=== PATIENT | female | born 1965 | race Caucasian/White ===

== ENCOUNTER 2021-09-14 15:31 | Emergency (ER) | payer OTHER, SELFPAY ==
[2021-09-14] VITALS (8 sets, daily range): BP systolic 102–122; BP diastolic 63–74; PULSE 75–88; RESP 16–26; TEMP 36.1; O2SAT 96–98
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
[2021-09-14 16:00] LABS: Add Manual Diff / Slide Review NO; Basophils Absolute Auto 0 /uL (0-100); Basophils Percent Auto 0.3 % (0-2); Eosinophils Absolute Auto 100 /uL (0-450); Eosinophils Percent Auto 0.8 % (2-4); Hematocrit 35.1 % (36-46); Hemoglobin 11.6 g/dL (12.0-16.0); Lymphocytes Absolute Auto 3700 /uL (1100-4500); Lymphocytes Percent Auto 26.9 % (25-40); Mean Corpuscular HGB Conc 33.1 % (30-36); Mean Corpuscular Hemoglobin 29.1 PG (26-34); Mean Corpuscular Volume 87.9 fL (80-100); Monocytes Absolute Auto 600 /uL (0-900); Monocytes Percent Auto 4.6 % (3-14); Neutrophils Absolute Auto 9200 /uL (1500-7000); Neutrophils Percent Auto 67.4 % (50-75); Platelet Count 329 X10^3/uL (150-400); Red Blood Cell Count 3.99 X10^6/uL (4.0-5.2); Red Cell Distribution Width 13.3 % (11.6-14.8); White Blood Cell Count 13.7 X10^3/uL (4.5-11.0)
[2021-09-14 16:14] LABS: INR 1.1 (0.9-1.3); Prothrombin Time 12.3 SECONDS (10.1-12.7)
[2021-09-14 16:16] LABS: PTT Partial Thromboplastin Tim 27 SECONDS (26.4-36.2)
[2021-09-14 16:18] LABS: Pregnancy Test Serum,Qual Negative (Negative)
[2021-09-14 16:19] LABS: Alanine Aminotransferase 45 IU/L (<35); Albumin 4.2 g/dL (3.5-5.0); Albumin Globulin Ratio 1.6 (1.0-2.8); Alkaline Phosphatase 81 U/L (38-126); Aspartate Aminotransferase 85 IU/L (14-36); BUN Creatinine Ratio 19.6 (6-22); Bilirubin Total 0.4 mg/dL (0.2-1.3); Blood Urea Nitrogen 19 mg/dL (7-17); Calcium 9.2 mg/dL (8.4-10.2); Carbon Dioxide 25 mmol/L (22-32); Chloride 105 mmol/L (98-107); Creatine Kinase 284 U/L (30-135); Estimated Glomerular Filt Rate 59.8 mL/min (>60); Ethanol (ETOH) < 10 mg/dL; Globulin 2.6 g/dL (1.7-4.1); Glucose 130 mg/dL (70-100); HEMOLYSIS < 15 (0-50); Lipase 163 U/L (23-300); Potassium 3.3 mmol/L (3.4-5.1); Sodium 139 mmol/L (137-145); Total Protein 6.8 g/dL (6.3-8.2)
[2021-09-14 16:30] LABS: Troponin I < 0.012 ng/mL (0.01-0.034)
[2021-09-14 16:34] LABS: CKMB % Relative Index 1.4 % (1.5-5.0); Creatine Kinase MB 3.96 ng/mL (<2.37)
[2021-09-14] MEDS: ONDANSETRON 4 MG/2 ML INJ IV (17:01)
[2021-09-14] MEDS: MORPHINE 2 MG/ML INJ IV (17:02)
[2021-09-14] MEDS: TET,DIPH,PERTUSS(ACELL),VAC/PF 0.5 ML SYRINGE IM (17:04)
[2021-09-14] MEDS: LIDO 1%/SOD BICARB 8.4% (10ML) 10 ML SYRINGE INJ (17:04)
--- NOTE | 2021-09-14 17:06 | PC.NURSE ---
pt has a laceration to the right thumb that is about 2 in in length, with no motor sensory deficits noted edges not approximated
[2021-09-14 17:16] LABS: COVID19 - ADMIT (NP swab/PCR) Negative (Negative)
--- NOTE | 2021-09-14 17:24 | PC.NURSE ---
catheter inserted without difficulty with 600 ml clear yellow urine returned
[2021-09-14 17:34] LABS: UR Morphine/Opiate cutoff 300 Negative (Negative); Ur Creatinine Normal (Normal); Ur Specific Gravity Normal (Normal); Urine Amphetamines Negative (Negative); Urine Cocaine Negative (Negative); Urine Tetrahydrocannabinol Negative (Negative); Urine pH Normal (Normal)
[2021-09-14 17:35] LABS: Urine Barbiturates Negative (Negative); Urine Benzodiazepines Negative (Negative); Urine MDMA Negative (Negative); Urine Methadone Negative (Negative); Urine Methamphetamines Negative (Negative); Urine Oxycodone Negative (Negative); Urine Phencyclidine Negative (Negative); Urine Tricyclic Antidepressant Negative (Negative)
--- NOTE | 2021-09-14 17:43 | PC.NURSE ---
pt states pain and nausea have improved, laceration wrapped with telfa an ana for transport
[2021-09-14 18:05] LABS: Appearance Urine UA CLEAR; Bilirubin Urine UA NEGATIVE (NEGATIVE); Color Urine UA YELLOW; Glucose Urine UA NEGATIVE (Negative); Ketones Urine UA TRACE (NEGATIVE); Leukocyte Esterase Urine UA NEGATIVE (NEGATIVE); Nitrite Urine UA NEGATIVE (Negative); Occult Blood Urine UA 3+ (Negative); Protein Urine UA NEGATIVE (Negative); Urobilinogen Urine UA 0.2 E.U./dL (0.2)
[2021-09-14 18:14] LABS: RBC Urine 10-30/HPF (0-5/HPF); Squamous Epithelial Cell Urine 1-5 /HPF (0-5/HPF); WBC Urine 1-5/HPF (0-5/HPF)
[2021-09-14 18:15] LABS: Bacteria Urine None Seen; Culture Indicated Urine Cult Not Indicated
--- NOTE | 2021-09-14 18:21 | PC.NURSE ---
fax report sent and report given to Abdirizak DE SANTIAGO, pt states pain is at a 4 at this time
== END 2021-09-14 18:23 | disposition short-term general hospital (02) ==
PROVIDERS: Emergency Provider Emergency Medicine
DX: S32.512A Fracture of superior rim of left pubis, initial encounter for closed fracture (principal); S32.19XA Other fracture of sacrum, initial encounter for closed fracture; S32.592A Other specified fracture of left pubis, initial encounter for closed fracture; S61.011A Laceration without foreign body of right thumb without damage to nail, initial encounter; S06.0X9A Concussion with loss of consciousness of unspecified duration, initial encounter; Z88.2 Allergy status to sulfonamides; V89.2XXA Person injured in unspecified motor-vehicle accident, traffic, initial encounter; Y92.410 Unspecified street and highway as the place of occurrence of the external cause; Z20.822 Contact with and (suspected) exposure to COVID-19; Z23 Encounter for immunization
CPT/HCPCS: 36415; 70450; 71045; 71260; 72125; 73502; 74177; 80053; 80305; 80320; 81001; 82550; 82553; 82962; 83690; 84484; 84703; 85025; 85610; 85730; 86850; 86900; 86901; 87635; 90471; 93005; 93010; 96374; 96375; 99285; 99291; C9803; 90715; G0390; J2270; J2405; Q9967